=== PATIENT | female | born 1985 | race Caucasian/White ===

== ENCOUNTER → 2022-05-04 | Outpatient (CLI) | payer MEDICARE, OTHER ==
[2022-05-04 12:00] LABS: ALT 23 U/L (8-44); AST 26 U/L (13-35); African American GFR (CKD) 146.4 (60.0-200.0); Albumin 4.4 g/dL (3.8-4.9); Albumin/Globulin Ratio 1.69 (1.60-3.17); Alkaline Phosphatase 81 U/L (41-126); Blood Urea Nitrogen 18.9 mg/dL (9.0-27.0); Calcium 9.1 mg/dL (8.7-10.3); Carbon Dioxide 23.7 mmol/L (20.0-27.5); Chloride 110 mmol/L (96-109); Globulin 2.6 g/dL (1.6-3.3); Glucose 142 mg/dL (70-110); Non-African American GFR(CKD) 126.3 (60.0-200.0); Potassium 4.2 mmol/L (3.5-5.5); Sodium 145 mmol/L (135-145); Total Bilirubin <0.15 mg/dL (0.30-1.20)
== END | disposition home or self-care (01) ==
LOC: LABWHC1 08:31
PROVIDERS: ATTEND Nurse Practitioner Acute Care
DX: Z51.81 Encounter for therapeutic drug level monitoring (principal); F44.5 Conversion disorder with seizures or convulsions
CPT/HCPCS: 36415; 80053; 80156